=== PATIENT | male | born 1950 | race Caucasian/White ===

== ENCOUNTER 2017-08-15 16:30 | Outpatient (CLI) | payer MEDICARE ==
[2017-08-15 17:20] LABS: Hemoglobin 16.5 g/dL (14.0-18.0); Mean Corpuscular HGB CONC 34.6 g/dL (32.0-36.0); Mean Corpuscular Hemoglobin 32.5 pg (27.0-31.0); Mean Platelet Volume 8.7 fL (7.4-10.4); Platelet Count 165 thou/uL (130-400); RBC Distribution Width 12.1 % (11.5-14.5); Red Blood Cell (RBC) Count 5.07 mill/uL (4.70-6.10)
[2017-08-15 17:26] LABS: INR-International Normal Ratio 1.1; PTT 25.4 SEC (22.9-36.1); Prothrombin Time 14.2 SEC (12.0-14.7)
[2017-08-15 17:36] LABS: ALT (SGPT) 9 U/L (8-55); AST (SGOT) 10 U/L (5-34); Albumin 3.8 g/dL (3.4-4.8); Alkaline Phosphatase 74 U/L (40-150); Anion Gap 14 mmol/L (10-20); BUN (Urea Nitrogen) 20 mg/dL (8.4-25.7); Bilirubin, Total 0.4 mg/dL (0.2-1.2); Calc. Creatinine Clearance 0 mL/min (70-130); Carbon Dioxide 26 mmol/L (23-31); Chloride 104 mmol/L (98-107); Estimated GFR-MDRD 66; Globulin 2.6 g/dL (2.4-3.5); Glucose 109 mg/dL (80-115); Potassium 3.7 mmol/L (3.5-5.1); Protein, Total 6.4 g/dL (5.8-8.1); Sodium 140 mmol/L (136-145)
== END 2017-08-15 16:31 | disposition home or self-care (01) ==
LOC: LABBT 16:30
PROVIDERS: ATTEND Internal Medicine Cardiovascular Disease
DX: Z01.818 Encounter for other preprocedural examination (principal); R94.39 Abnormal result of other cardiovascular function study
CPT/HCPCS: 80053; 85027; 85610; 85730

== ENCOUNTER 2017-08-19 05:46 | Day surgery (SDC) | payer MEDICARE ==
[2017-08-15 16:38] VITALS: BMI 29.6
[2017-08-19] MEDS ORDERED: Heparin 10,000 UNITS/1 ML VIAL ONE (07:31)
[2017-08-19] MEDS ORDERED: Verapamil 5 MG/2 ML VIAL ONE ×2 (07:31→08:11)
[2017-08-19] MEDS ORDERED: Nitroglycerin 100MG/250ML BOT 250 ML ONE (07:31)
[2017-08-19 07:51] LABS: Cardiac Risk 4.8 (Less than 4.5)
[2017-08-19] MEDS ORDERED: Midazolam HCl 2 mg/2 ml Vial ONE (08:33)
[2017-08-19] MEDS ORDERED: Fentanyl 100 MCG/2 ML VIAL ONE (08:33)
--- NOTE | 2017-08-19 10:55 | CON ---
DATE OF CONSULTATION: 08/19/2017 HISTORY OF PRESENT ILLNESS: This is a 67-year-old gentleman with history of chronic atrial fibrillat ion, not on anticoagulation due to social situation. He was evaluated with a stress test showing an apical scar and marked ischemia without chest pain, but increased fatigue. Cardiac catheterization d one today showed a distal 70-80% left main stenosis. The LAD was occluded at its origin and filled f aintly from right to right and left to right collaterals. LV systolic function appeared overall well -preserved. PAST MEDICAL HISTORY: Otherwise significant for some mild aortic valve insufficiency and the echo re port is pending at this time. He also has a history of seizure disorder where he goes blank for a sh ort period of time, although this has not happened in a number of years. MEDICATIONS: Aspirin 1 daily, Epitol 200 mg b.i.d. with meals, Cartia XT 180 daily, digoxin 0.25 mg daily. ALLERGIES: No known allergies. PAST SURGICAL HISTORY: Negative. SOCIAL HISTORY: He lives alone. He runs a [employer] for which he works about 2-1/2 days a month. PHYSICAL EXAMINATION: GENERAL: He is an alert, cooperative gentleman in no distress. NECK: No carotid bruits. LUNGS: Clear to auscultation. CARDIAC: Irregular rhythm, no murmurs. ABDOMEN: Obese, soft, nontender. No aneurysm. EXTREMITIES: He has palpable femoral and posterior tibial pulses bilaterally with no peripheral eboni a. He has a compression device on his right radial artery. PLAN: The plan at this time is coronary bypass grafting x 3-4. The intention at this time is not to do anything to the right coronary artery. With his chronic atrial fibrillation a maze procedure is probably of no value, but a left atrial appendage ligation will be performed.
--- NOTE | 2017-08-19 11:52 | RAD ---
SINGLE VIEW OF THE CHEST: COMPARISON: 02/09/13. HISTORY: Preoperative radiograph prior to CABG. FINDINGS: Single view of the chest shows a normal sized cardiomediastinal silhouette. There is no evidence of c onsolidation, mass, or pleural effusion. The bones are unremarkable. IMPRESSION: No evidence of acute cardiopulmonary disease. POS: [facility]
[2017-08-19] MEDS ORDERED: Iopamidol 370 76% 100 ML VIAL ONE (16:10)
--- NOTE | 2017-08-20 07:16 | EKG ---
Test Reason : PREOP Blood Pressure : / mmHG Vent. Rate : 106 BPM Atrial Rate : 416 BPM P-R Int : 000 ms QRS Dur : 086 ms QT Int : 304 ms P-R-T Axes : 000 006 -62 degrees QTc Int : 403 ms Atrial fibrillation with rapid ventricular response Cannot rule out Inferior infarct , age undetermined Abnormal ECG When compared with ECG of 10-FEB-2013 07:45, Atrial fibrillation has replaced Sinus rhythm Nonspecific T wave abnormality now evident in Inferior leads Confirmed by CHANTAL RENDON, DR. Orozco ([id number]) on 08/20/2017 7:16:02 AM Referred By: YUNIEL Confirmed By:DR. Pam CORNEJO MD
== END 2017-08-19 11:39 | disposition home or self-care (01) ==
LOC: CCL 05:46
PROVIDERS: ATTEND Internal Medicine Cardiovascular Disease
DX: I48.2 Chronic atrial fibrillation (principal); I35.1 Nonrheumatic aortic (valve) insufficiency; G40.909 Epilepsy, unspecified, not intractable, without status epilepticus; I10 Essential (primary) hypertension; G31.84 Mild cognitive impairment of uncertain or unknown etiology; Q85.00 Neurofibromatosis, unspecified; Z79.82 Long term (current) use of aspirin; Z79.51 Long term (current) use of inhaled steroids; Z79.899 Other long term (current) drug therapy
CPT/HCPCS: 71045; 80061; 86850; 86900; 86901; 93005; 93458; C1769; 36415; 93010; 99152; J1644; J2250; J3010

== ENCOUNTER 2017-08-22 14:30 | Inpatient (IN) | payer MEDICARE ==
[2017-08-22 11:52] VITALS: BMI 30.1
[2017-08-23] MEDS ORDERED: Fentanyl 100 MCG/2 ML VIAL ONE (06:37)
[2017-08-23] MEDS ORDERED: Midazolam HCl 5 mg/5 ml Vial ONE (06:38)
[2017-08-23] MEDS ORDERED: Vecuronium 10 MG VIAL ONE ×2 (06:38→12:48)
[2017-08-23] MEDS ORDERED: Phenylephrine 10 MG/NS 250 ML 0 ML ONE (06:38)
[2017-08-23] MEDS ORDERED: Albumin 5% 500 ML ONE (06:46)
[2017-08-23] MEDS ORDERED: CEFAZOLIN/Water 2 GM/20 ML SYRINGE ONE (07:06)
[2017-08-23] MEDS ORDERED: Digoxin 0.5 MG/2 ML AMP ONE (08:16)
[2017-08-23 08:40] LABS: Bilirubin Negative (Negative); Blood, Urine Large (Negative); Clarity TURBID (Clear); Glucose, Urine (Dipstick) Negative (Negative); Leukocyte Large (Negative); Nitrite Positive (Negative); Protein, Urine (Dipstick) 100 mg/dL (Neg-Trace); Specific Gravity, Urine 1.021 (1.002-1.036)
[2017-08-23 08:45] LABS: Bacteria/HPF 4+ HPF (None Seen); Hyaline Casts/LPF 0-3 HYALINE CAST LPF (0-3 Hyaline); RBC/HPF GREATER THAN 50-TNTC HPF (0-3); Squamous Epithelial None Seen HPF (0-3)
[2017-08-23] MEDS ORDERED: Ondansetron HCl/PF 4 MG/2 ML Vial IVP PRN (11:45)
[2017-08-23] MEDS ORDERED: Amiodarone In Dextrose 200 ML IVPB SCH (11:45)
[2017-08-23] MEDS ORDERED: niCARdipine HCl 25 MG in Sodium Chloride 0.9% 250 ML 240 ML IVPB PRN (11:45)
[2017-08-23] MEDS ORDERED: Fentanyl 100 MCG/2 ML VIAL SLOW IVP PRN ×2 (11:45)
[2017-08-23] MEDS ORDERED: Mag-Al 1200 mg/1200 mg/30 ML UDCUP PO PRN (11:45)
[2017-08-23] MEDS ORDERED: DOPamine 400 MG/D5W 250 ML 250 ML IVPB PRN (11:45)
[2017-08-23] MEDS ORDERED: Promethazine HCl 25 MG/ML VIAL IM PRN (11:45)
[2017-08-23] MEDS ORDERED: Phenylephrine 10 MG/NS 250 ML 250 ML IVPB PRN (11:45)
[2017-08-23] MEDS ORDERED: HYDROcodone/Acetaminophen 5/325 mg Tablet PO PRN (11:45)
[2017-08-23] MEDS ORDERED: Norepinephrine 8 MG/0.9% NS 250 ML IVPB PRN (11:45)
[2017-08-23] MEDS ORDERED: Bisacodyl 10 MG SUPP PR PRN (11:45)
[2017-08-23] MEDS ORDERED: Potassium Chloride 20 MEQ/100 ML PREMIX BAG IVPB PRN (11:45)
[2017-08-23] MEDS ORDERED: Guaifenesin DM 100-10/5 ML UDCUP PO PRN (11:45)
[2017-08-23] MEDS ORDERED: Bisacodyl 5 MG TAB PO PRN (11:45)
[2017-08-23] MEDS ORDERED: Hetastarch 6% 500 ML 500 ML IVPB PRN (11:45)
[2017-08-23] MEDS ORDERED: Morphine 4 MG/ML Carpuject SLOW IVP PRN (11:45)
[2017-08-23] MEDS ORDERED: Nitroglycerin 50 MG/250 ML BOT 250 ML IVPB PRN (11:45)
[2017-08-23] MEDS ORDERED: Post-Op Insulin Drip Protocol IVPB ONE (11:45)
[2017-08-23] MEDS ORDERED: Acetaminophen 325 MG TAB PO PRN (11:45)
[2017-08-23] MEDS ORDERED: hydrALAZINE 20 MG/ML VIAL SLOW IVP PRN (11:45)
[2017-08-23] MEDS ORDERED: Dextrose 50% Abboject 50 ML SYRINGE SLOW IVP PRN (12:05)
[2017-08-23] MEDS ORDERED: Dextrose 5% in Water 1,000 ML IV PRN (12:05)
[2017-08-23] MEDS ORDERED: Insulin Regular 300 UNITS/3 ML VIAL SC PRN (12:05)
[2017-08-23] MEDS: Ketorolac Tromethamine 30 MG/ML VIAL IVP SCH ×3 (12:12→23:38)
[2017-08-23] MEDS ORDERED: Magnesium 2 GM/NS 0.9% 100 ML 2 GM in Premix Bag 1 BAG IVPB SCH (12:15)
--- NOTE | 2017-08-23 12:15 | OP ---
PREOPERATIVE DIAGNOSES: Coronary artery disease, chronic atrial fibrillation. PROCEDURES PERFORMED: Coronary bypass graft x3. Good quality left internal mammary artery to a 1.5 mm left anterior descending, saphenous vein good quality, the large size 2-2.5 mm diagonal and 2-2.5 mm ramus. The obtuse marginal was felt to be marginal for grafting and was not grafted. Left atrial appendage was oversewn. SURGEON: Bryce Avila M.D. TANK HOUSE OPERATOR: Dr. Bedolla. TRANSFUSION: None. PROCEDURE IN DETAIL: After adequate anesthesia had been obtained, the patient was prepped and draped . A midline sternotomy was performed and simultaneously Dr. Bedolla did an endovascular vein harvest o f the left greater saphenous vein. After completing sternotomy, the left internal mammary artery was harvested entering the pleura. Heparinization was carried out, the mammary divided distally, passed posterior to the thymus gland and treated with intraluminal papaverine. Aorta and right atrium were cannulated and cardiopulmonary bypass was instituted. Vessels were inspected for grafting. The aor ta was cross-clamped and 900 mL of cardioplegic solution was given through the aortic root; however, the patient had more significant AI than appreciated and aorta did not firm up. For this reason, a r etrograde coronary sinus catheter was placed. 300 mL was given retrograde and the patient developed standstill. Following this, atrial appendage was oversewn with a double layer of 4-0 Prolene and the re were no signs of thrombus either with ADAMARIS or visually. Following completion of this, venous to co ronary anastomoses were completed and then mammary to LAD. Cross-clamp was removed and the partial o ccluding clamp placed, and 2 proximal anastomoses performed on the aortic root and marked with rings. The patient was weaned from cardiopulmonary bypass, cannulas removed, and a 4-0 Prolene suture plac ed to secure the aortic cannulation site. Mediastinal and left pleural drains were placed, following which the sternum was reapproximated with #7 interrupted wire using vancomycin paste on the sternal edges, platelet-enriched blood, and platelet-poor plasma. Subcutaneous tissue and skin were closed i n layers.
[2017-08-23] MEDS: Sodium Chloride 0.9% 1,000 ML IV SCH (12:17)
[2017-08-23 12:18] LABS: Actual Bicarbonate (HCO3a) 21.8 mEq/L (22-26); CO2 Tension 37.6 mmHg (35.0-45.0); O2 Tension (PaO2) 88.7 mmHg (80.0-100.0); pH, Arterial 7.38 (7.35-7.45)
[2017-08-23 12:19] LABS: Base Excess (BEa) -2.9 mEq/L (0 (+/-) 2.5); Hemoglobin (Hb) 13.6 g/dL (14.0-18.0); Puncture Site ALINE
[2017-08-23 12:19] LABS: Hemoglobin 13.8 g/dL (14.0-18.0); Mean Corpuscular HGB CONC 32.8 g/dL (32.0-36.0); Mean Corpuscular Hemoglobin 30.7 pg (27.0-31.0); Mean Corpuscular Volume 93.6 fl (80.0-94.0); Mean Platelet Volume 8.5 fL (7.4-10.4); Platelet Count 193 thou/uL (130-400); RBC Distribution Width 11.8 % (11.5-14.5); White Blood Cell (WBC) Count 25.2 thou/uL (4.8-10.8)
[2017-08-23 12:20] LABS: INR-International Normal Ratio 1.3; PTT 31.3 SEC (22.9-36.1); Prothrombin Time 16.7 SEC (12.0-14.7)
[2017-08-23 12:31] LABS: Band 31 % (5-11); Lymphocytes 1 % (21-51); MDiff Complete? YES; Monocytes 9 % (0-10); Myelocyte 2 % (0-0); Neutrophil 53 % (42-75); RBC Morphology Normal; Reactive Lymphocytes 4 % (0-10)
[2017-08-23 12:33] LABS: Anion Gap 10 mmol/L (10-20); BUN (Urea Nitrogen) 23 mg/dL (8.4-25.7); Calc. Creatinine Clearance 110 mL/min (70-130); Calcium 7.5 mg/dL (7.8-10.44); Carbon Dioxide 22 mmol/L (23-31); Chloride 108 mmol/L (98-107); Estimated GFR-MDRD 90; Glucose 147 mg/dL (80-115); Potassium 5.3 mmol/L (3.5-5.1); Sodium 135 mmol/L (136-145)
[2017-08-23] MEDS ORDERED: Heparin 5,000 UNITS/ML VIAL ONE (12:48)
[2017-08-23] MEDS ORDERED: Lidocaine 1% PF 5 ML VIAL ONE (12:48)
[2017-08-23] MEDS ORDERED: Magnesium 5 GM/10 ML VIAL ONE (12:48)
[2017-08-23] MEDS ORDERED: Lidocaine 2% PF 100 mg/5 ml Syringe ONE (12:48)
[2017-08-23] MEDS ORDERED: Cardioplegic Soln 1,000 ML BAG ONE (12:48)
[2017-08-23] MEDS ORDERED: Protamine Sulfate 250 MG/25 ML VIAL ONE (12:48)
[2017-08-23] MEDS ORDERED: Potassium Chloride 60 MEQ/30 ML VIAL ONE (12:48)
[2017-08-23] MEDS ORDERED: Sodium Bicarb 50 MEQ/50 ML VIAL ONE (12:48)
[2017-08-23] MEDS ORDERED: PHENYLEPHRINE-NS 100 MCG/ML 10 ML SYRINGE ONE (12:48)
[2017-08-23] MEDS ORDERED: Heparin 30,000 units/30 ml VIAL ONE (12:48)
[2017-08-23] MEDS ORDERED: Thrombin 5000 UNITS/5 ML VIAL ONE (12:48)
[2017-08-23] MEDS ORDERED: Aminocaproic Acid 5 GM/20 ML VIAL ONE (12:48)
[2017-08-23] MEDS ORDERED: Esmolol 100 MG/10 ML VIAL ONE (12:48)
[2017-08-23] MEDS ORDERED: Papaverine 60 MG/2 ML VIAL ONE (12:48)
[2017-08-23] MEDS ORDERED: Calcium Chloride 1 GM/10 ML Abboject SYRINGE ONE (12:48)
[2017-08-23] MEDS ORDERED: Propofol 200 MG/20 ML VIAL ONE (12:48)
--- NOTE | 2017-08-23 13:04 | RAD ---
ONE VIEW CHEST: Comparison: 02-09-13, 08-19-17 FINDINGS: Portable supine chest radiograph demonstrates an endotracheal tube at the level of the clavicles. The re is a right sided central venous catheter terminating over the expected region of the right atrium. Sternotomy wires are noted. There is a new left sided venous catheter and left sided chest tube. The re are pleural and parenchymal changes in the left lung base. Heart is enlarged. No pneumothorax. IMPRESSION: Post-operative changes as above. POS: [facility]
[2017-08-23] MEDS: CEFAZOLIN/Water 2 GM/20 ML SYRINGE SLOW IVP SCH ×2 (14:26→20:56)
[2017-08-23 15:38] LABS: pH, Arterial 7.41 (7.35-7.45)
[2017-08-23 15:40] LABS: Actual Bicarbonate (HCO3a) 21.1 mEq/L (22-26); Base Excess (BEa) -2.6 mEq/L (0 (+/-) 2.5); CO2 Tension 33.9 mmHg (35.0-45.0); Hemoglobin (Hb) 14.1 g/dL (14.0-18.0); O2 Tension (PaO2) 92.9 mmHg (80.0-100.0)
[2017-08-23 15:41] LABS: ALV-art Gradient 85.755 (0-20); Puncture Site ALINE
--- NOTE | 2017-08-23 16:43 | CON ---
DATE OF CONSULTATION: 08/23/2017 SERVICE: Pulmonary Medicine. REASON FOR CONSULTATION: ICU patient. HISTORY OF PRESENT ILLNESS: The patient is a very pleasant 67-year-old white male with past medical history significant for coronary artery disease. This was identified on a cardiac catheterization by Cardiology. He was in his usual state of health when he presented from the outpatient setting for a coronary bypass graft. The postop period was uncomplicated to date. He currently denies any shortness of breath, fever or chills. He is currently on mechanical ventilation and a hard time getting words out, obviously. That being said, he has no complaints of ongoing chest discomfort, belly pain, nausea, vomiting, or leg pain. PAST MEDICAL HISTORY: 1. Coronary artery disease, status post coronary artery bypass graft. 2. Atrial fibrillation. 3. Hypertension. 4. History of seizure disorder. 5. Mild cognitive impairment. PAST SURGICAL HISTORY: Coronary artery bypass graft. ALLERGIES: No known drug allergies. MEDICATIONS: List of inpatient medications were reviewed. There are no specific updates made at this time. FAMILY HISTORY: Noncontributory. SOCIAL HISTORY: Negative for tobacco, alcohol or illicit drug use. He previously worked as a rancher. He has no exposures to chemicals, dust asbestos or tuberculosis, otherwise. REVIEW OF SYSTEMS: This cannot be obtained as the patient is currently intubated and under the influence of a little bit of sedation. PHYSICAL EXAMINATION: VITAL SIGNS: Afebrile, pulse 80, blood pressure 102/61, respirations 24, saturation 99% on 30% FiO2 and PEEP of 5. GENERAL: Patient is awake and alert, in no apparent distress. LUNGS: Decent air entry. There is no prolonged expiratory phase, wheezing, rhonchi, or crackles present. Waveforms on the ventilator looks fantastic. HEART: Normal rate. Irregular. ABDOMEN: Soft, nontender and nondistended. Bowel sounds are positive. MUSCULOSKELETAL: No cyanosis or clubbing. There is no pitting in the bilateral lower extremities. NEUROLOGIC: Grossly nonfocal. LABORATORY DATA: WBC 25.2, hemoglobin 13.8 and platelets 193,000. INR 1.3. PH 7.41, pCO2 of 34, pO2 of 92 on 31% FiO2 at the time. Creatinine 0.85. Basic metabolic profile is otherwise unremarkable except for potassium of 5.3. Glucose 147 and calcium 7.5. IMAGING DATA: Chest x-ray demonstrates postop sternotomy changes. I see no evidence of an acute consolidating lesion. Endotracheal tube is roughly 4-5 cm above the luis. The right IJ is in good position and terminates in the vicinity of the cavoatrial junction. There is a thoracostomy drain on the left with no obvious overt effusion. ASSESSMENT: 1. Coronary artery disease, status post coronary artery bypass graft x3 vessels. 2. Atrial fibrillation, status post left atrial appendage oversew. 3. Acute hypoxic respiratory failure, in the immediate postoperative period. 4. History of seizure disorder, currently well controlled. PLAN: We will wean oxygen as tolerated. He currently looks pretty good on the ventilator. I do think that he would tolerate extubation just fine. That being said, he is the post-CABG protocol and this will be followed. I will wean away the oxygen as tolerated. We will resume his home antiepileptic drugs as soon as he tolerates p.o. Pulmonary Critical Care will continue to follow. CRITICAL CARE TIME: 30 minutes. EBONI
[2017-08-23 17:06] LABS: Hemoglobin 14.4 g/dL (14.0-18.0)
[2017-08-23 17:35] LABS: Potassium 4.5 mmol/L (3.5-5.1)
[2017-08-23] MEDS: Amiodarone HCl 450 MG, Admixture Fee 1 EACH in Dextrose 5% in Water 250 ML IVPB SCH ×3 (18:05)
--- NOTE | 2017-08-23 19:03 | CON ---
DATE OF CONSULTATION: 08/23/2017 REASON FOR CONSULTATION: Status post CABG. PRIMARY SULFIDE HEAD OPERATOR: Markie Barclay M.D. HISTORY OF PRESENT ILLNESS: Mr. Abbais is a very pleasant 67-year-old white gentleman, who comes to the hospital for planned coronary artery bypass grafting. He is my patient. He was seen in the off ice for atrial fibrillation and shortness of breath with exertion. He was found to have an abnormal stress and taken to the catheterization lab for further evaluation and was found to have multivessel disease. He had a distal left main and proximal LAD disease. He underwent coronary artery bypass gr afting x3 with WALKER to the LAD, saphenous vein graft to diagonal and a jump to ramus. There was an O M that was felt to be marginal for non-grafted. He also had a left atrial appendage oversewn. He is doing well. He is sore but is awake. He is off all inotropic support. He developed a small run of atrial fibrillation, but he converted on his own. Otherwise, progressing as expected. PAST MEDICAL HISTORY: 1. Coronary artery disease, status post CABG as above. 2. Paroxysmal atrial fibrillation. 3. Hypertension. 4. Seizure disorder. 5. Mild cognitive impairment. PAST SURGICAL HISTORY: CABG x3 as above. ALLERGIES: No known drug allergies. OUTPATIENT MEDICATIONS: Include, 1. Diltiazem. 2. Digoxin. 3. Carbamazepine. 4. Flonase. 5. Aspirin 325 a day. FAMILY HISTORY: Noncontributory. SOCIAL HISTORY: No alcohol, tobacco or drugs. REVIEW OF SYSTEMS: A 10-point review of systems was done and is all negative unless stated in the hi story of present illness. He does complain about just soreness around his chest and soreness around his leg where the vein was taken out. Otherwise, he just feels worn out. PHYSICAL EXAMINATION: VITAL SIGNS: Temperature 97.1, pulse 86, respiratory rate 20, satting 97% on 2 liters, blood pressur e 117/57. HEENT: Normocephalic, atraumatic. NECK: Supple. LUNGS: Clear. CARDIOVASCULAR: There is a 3 component rub, but no murmurs. S1 and S2. ABDOMEN: Soft. Positive bowel sounds. EXTREMITIES: 1+ edema in bilateral. SKIN: Warm and dry. LABORATORY WORK: Reviewed. White count postoperatively of 25; hemoglobin of 13, up to 14 now; hemat ocrit 42; platelet count of 193. Coags were reviewed. ABG was reviewed. Chemistries were reviewed. Postop sodium was 135, potassium was 5.3, chloride of 108, carbon dioxide 22, anion gap of 10, BUN of 23, creatinine 0.85. UA showed positive nitrites, large leukocyte esterase, 4+ bacteria. Chest x-ray was reviewed. ASSESSMENT AND PLAN: 1. Multivessel coronary artery disease, status post coronary artery bypass grafting x3 as above. 2. Atrial fibrillation. Left atrial appendage was oversewn today. 3. Seizure disorder. 4. Possible urinary tract infection. PLAN: 1. Continue supportive care. 2. Continue regular postoperative care. 3. I agree with an amiodarone drip as he had a small amount of atrial fibrillation, most likely he w ill continue to have these postoperatively and amiodarone drip would reduce the possibility of him go ing into them. 4. Aspirin and statin for life. 5. Beta ty and RUFUS inhibitor once blood pressure allows. 6. Consider antibiotic therapy for possible urinary tract infection as his UA seems to be an issue. Thank you for letting us to participate in the care of your patient. We will follow.
[2017-08-23] MEDS: carBAMazepine 200 MG TAB PO SCH (20:42)
[2017-08-23] MEDS ORDERED: Famotidine/PF 20 mg/2ml Vial SLOW IVP SCH (21:00)
[2017-08-23] MEDS ORDERED: Digoxin 0.25 MG TAB PO SCH (21:00)
[2017-08-23] MEDS: HYDROcodone/Acetaminophen 5/325 mg Tablet PO PRN ×2 (21:05→23:37)
--- NOTE | 2017-08-23 23:45 | EKG ---
Test Reason : POST CABG Blood Pressure : / mmHG Vent. Rate : 078 BPM Atrial Rate : 078 BPM P-R Int : 150 ms QRS Dur : 076 ms QT Int : 356 ms P-R-T Axes : 064 019 043 degrees QTc Int : 405 ms Normal sinus rhythm Low voltage QRS Borderline ECG When compared with ECG of 19-AUG-2017 06:52, Sinus rhythm has replaced Atrial fibrillation Non-specific change in ST segment in Lateral leads Confirmed by Leatha AMAYA ([id number]) on 08/23/2017 11:45:37 PM Referred By: DARCIE Confirmed By:Leatha AMAYA
[2017-08-24] MEDS: Amiodarone HCl 450 MG, Admixture Fee 1 EACH in Dextrose 5% in Water 250 ML IVPB SCH ×6 (00:36→22:12)
[2017-08-24 04:21] LABS: #Eosinphils 0.1 thou/uL (0.0-0.7); #Lymphocytes 1.1 thou/uL (1.20-3.40); #Monocytes 1.7 thou/uL (0.11-0.59); #Neutrophils 10.8 thou/uL (1.40-6.50); %Basophils 0.1 % (0.0-1.0); %Eosinophils 0.4 % (0.0-10.0); %Lymphocytes 7.9 % (21.0-51.0); %Monocytes 12.7 % (0.0-10.0); %Neutrophils 78.9 % (42.0-75.0); Hemoglobin 13.3 g/dL (14.0-18.0); Mean Corpuscular HGB CONC 34.2 g/dL (32.0-36.0); Mean Corpuscular Volume 93.5 fl (80.0-94.0); Mean Platelet Volume 8.3 fL (7.4-10.4); Platelet Count 164 thou/uL (130-400); RBC Distribution Width 11.8 % (11.5-14.5); Red Blood Cell (RBC) Count 4.17 mill/uL (4.70-6.10); White Blood Cell (WBC) Count 13.7 thou/uL (4.8-10.8)
[2017-08-24 04:25] LABS: Anion Gap 11 mmol/L (10-20); BUN (Urea Nitrogen) 26 mg/dL (8.4-25.7); Calc. Creatinine Clearance 118 mL/min (70-130); Calcium 7.1 mg/dL (7.8-10.44); Carbon Dioxide 22 mmol/L (23-31); Chloride 107 mmol/L (98-107); Estimated GFR-MDRD Greater than 90; Glucose 104 mg/dL (80-115); Potassium 4.2 mmol/L (3.5-5.1); Sodium 136 mmol/L (136-145)
[2017-08-24] MEDS: Ketorolac Tromethamine 30 MG/ML VIAL IVP SCH (05:04)
[2017-08-24] MEDS: HYDROcodone/Acetaminophen 5/325 mg Tablet PO PRN ×3 (05:05→22:10)
[2017-08-24] MEDS: CEFAZOLIN/Water 2 GM/20 ML SYRINGE SLOW IVP SCH (05:08)
--- NOTE | 2017-08-24 06:22 | PDOC.CTH ---
Cardiology Progress Note - Subjective He is doing well. He went back to afib but is rate controlled. - Objective Vital Signs Temp Pulse Resp Pulse Ox 08/24/17 02:42 98 08/23/17 20:42 86 08/23/17 20:00 98.7 F 86 25 H 96 Weight 197 lb 5.019 oz 08/22/17 08/23/17 08/24/17 06:59 06:59 06:59 Intake Total 1292.1 Output Total 980 Balance 312.1 - Physical Examination General/Neuro: alert & oriented x3, NAD Neck: no JVD present Lungs: unlabored respirations Heart: other: (irreg) Abdomen: NT/ND Extremities: + edema B (1+) - Telemetry Telemetry Rhythm: NSR - Labs Result Diagrams: 08/24/17 03:45 08/24/17 03:45 - Assessment/Plan 1. CAD s/p CABG. 2. Chronic afib 3. S/P EVELINE ligation 4. UTI PLAN: - Will continue Cipro for 5 days total. - Aspirin and statin for life. - Will start very low dose BB. - ACEI once BP allows. - Start PT once chest tubes out.
[2017-08-24] MEDS ORDERED: Ondansetron HCl/PF 4 MG/2 ML Vial IVP PRN (07:47)
[2017-08-24] MEDS ORDERED: Milk Of Magnesia 30 ML UDCUP PO PRN (07:47)
[2017-08-24] MEDS ORDERED: Bisacodyl 10 MG SUPP PR PRN (07:47)
[2017-08-24] MEDS ORDERED: Fentanyl 100 MCG/2 ML VIAL SLOW IVP PRN (07:47)
[2017-08-24] MEDS ORDERED: Mag-Al 1200 mg/1200 mg/30 ML UDCUP PO PRN (07:47)
[2017-08-24] MEDS ORDERED: Bisacodyl 5 MG TAB PO PRN (07:47)
[2017-08-24] MEDS ORDERED: Nitroglycerin 0.4 MG TAB 1 EACH SL PRN (07:47)
[2017-08-24] MEDS ORDERED: Guaifenesin DM 100-10/5 ML UDCUP PO PRN (07:47)
[2017-08-24] MEDS ORDERED: Acetaminophen 325 MG TAB PO PRN (07:47)
[2017-08-24] MEDS ORDERED: Mineral Oil ENEMA PR PRN (07:47)
[2017-08-24] MEDS: Sodium Chloride 0.9% 1,000 ML IV SCH (08:12)
[2017-08-24] MEDS ORDERED: Magnesium 2 GM/NS 0.9% 100 ML 2 GM in Premix Bag 1 BAG IVPB SCH (09:00)
[2017-08-24] MEDS ORDERED: Aspirin 325 MG TAB PO SCH (09:00)
--- NOTE | 2017-08-24 09:24 | RAD ---
CHEST ONE VIEW: History: Post open heart surgery. Comparison: Prior day. FINDINGS: Central venous catheter tip cavoatrial junction, similar. Patient has been extubated. No enteric tube is seen. Mediastinal and thoracotomy drains are present. There is dependent atelectasis present and small left effusion. No pneumothorax. IMPRESSION: Interval extubation without complication. POS: [facility]
[2017-08-24] MEDS: Digoxin 0.25 MG TAB PO SCH (09:37)
[2017-08-24] MEDS: Tamsulosin HCl 0.4 MG CAP PO SCH (09:38)
[2017-08-24] MEDS: Aspirin 325 mg Enteric Coated Tablet PO SCH (09:38)
[2017-08-24] MEDS: Famotidine 20 MG TAB PO SCH ×2 (09:38→22:13)
[2017-08-24] MEDS: carBAMazepine 200 MG TAB PO SCH ×2 (09:38→22:18)
[2017-08-24] MEDS: Finasteride 5 MG TAB PO SCH (09:38)
[2017-08-24] MEDS: Carvedilol 3.125 MG TAB PO SCH ×2 (09:38→17:35)
--- NOTE | 2017-08-24 13:50 | PRG ---
DATE OF SERVICE: 08/24/2017 SERVICE: Pulmonary Medicine INTERVAL HISTORY: The patient is doing outstanding from a respiratory standpoint. He is breathing v pamela comfortably this morning. His only complaint is that he has got a significant amount of weakness . He fought the weakness to get into a chair today, but otherwise, needed a little bit of motivation to do so. There were no overnight events. PHYSICAL EXAMINATION: VITAL SIGNS: Afebrile, pulse 89, blood pressure 105/75, respirations 26, saturation 96% on 2 liters nasal cannula. GENERAL: The patient is awake, alert, in no apparent distress. LUNGS: Decent air entry. Dependent crackles are minimal. No prolonged expiratory phase or wheezing is appreciated. HEART: Normal rate, regular. ABDOMEN: Soft, nontender, nondistended. Bowel sounds are positive. MUSCULOSKELETAL: No cyanosis or clubbing. No pitting in the bilateral lower extremities. NEUROLOGIC: Grossly nonfocal. LABORATORY DATA: WBC 13.7, hemoglobin 13.3, platelets 164,000. INR 1.3. Basic metabolic profile is otherwise unremarkable. Calcium 7.1. Urinalysis is positive for greater than 50 white blood cells and red blood cells. Urine culture is growing gram negative rods at this point. IMAGING: Chest x-ray demonstrates interval extubation. Right IJ is in good position. There is a le ft-sided thoracostomy drain with possible left-sided pleural or parenchymal opacification, with volum e loss. ASSESSMENT: 1. Coronary artery disease, status post coronary artery bypass graft x3 vessels. 2. Atrial fibrillation, status post a left atrial appendage oversew. 3. Acute hypoxic respiratory failure, improving. 4. History of seizure disorder. PLAN: The patient is doing fine from a respiratory standpoint. He can be transitioned out of the IC U today. When he goes to the floor, he will have no further requirements for inpatient Critical Care opinion. As such, I will sign off. If he remains in this location I will continue to follow.
[2017-08-24] MEDS: Atorvastatin Calcium 20 MG TAB PO SCH (22:11)
[2017-08-25] MEDS: cefTRIAXone\\ROCEPHIN 2 GM in Sodium Chloride 0.9% 100 ML IVPB SCH (06:47)
[2017-08-25] MEDS: Carvedilol 3.125 MG TAB PO SCH ×2 (08:37→16:50)
[2017-08-25] MEDS: carBAMazepine 200 MG TAB PO SCH ×2 (08:37→16:50)
[2017-08-25] MEDS: Aspirin 325 mg Enteric Coated Tablet PO SCH (08:37)
[2017-08-25] MEDS: Digoxin 0.25 MG TAB PO SCH (08:37)
[2017-08-25] MEDS: Famotidine 20 MG TAB PO SCH ×2 (08:38→21:32)
[2017-08-25] MEDS: Finasteride 5 MG TAB PO SCH (08:38)
[2017-08-25] MEDS: Tamsulosin HCl 0.4 MG CAP PO SCH (08:38)
[2017-08-25] MEDS: Amiodarone HCl 450 MG, Admixture Fee 1 EACH in Dextrose 5% in Water 250 ML IVPB SCH ×3 (12:23)
--- NOTE | 2017-08-25 17:16 | PDOC.CTH ---
Cardiology Progress Note - Subjective He is doing much better today. Chest tubes are out. He has been walking around with cardiac rehab and feels fine doing so. His HR has been higher than normal averaging 1000 to 120. He still has not had a BM but does not feel like having one. - Objective Vital Signs Temp Pulse Pulse Pulse Resp BP BP 08/25/17 15:42 98.1 F 117 H 16 08/25/17 15:00 131 H 119 H 153/75 H 147/69 H 08/25/17 13:05 99 100 115/68 121/73 08/25/17 11:47 97.8 F 113 H 17 08/25/17 10:02 112 H 117 H 129/79 112/66 08/25/17 08:51 131 H 120 H 113/71 120/61 08/25/17 08:37 120 H 08/25/17 08:33 98.3 F 120 H 22 H BP BP Pulse Ox Pulse Ox Pulse Ox 08/25/17 15:42 133/79 98 08/25/17 15:00 100 98 08/25/17 13:05 08/25/17 11:47 114/74 98 08/25/17 10:02 96 96 08/25/17 08:51 94 L 95 08/25/17 08:37 08/25/17 08:33 128/95 H 95 Weight 206 lb 08/24/17 08/25/17 08/26/17 06:59 06:59 06:59 Intake Total 1292.1 2001.95 Output Total 980 1755 Balance 312.1 246.95 - Physical Examination General/Neuro: alert & oriented x3, NAD Neck: no JVD present Lungs: unlabored respirations Heart: RRR Abdomen: NT/ND Extremities: + edema B (Trace) - Telemetry Telemetry Rhythm: Afib HR 100-120 - Labs Result Diagrams: 08/24/17 03:45 08/24/17 03:45 - Assessment/Plan 1. CAD s/p CABG. 2. Chronic afib 3. S/P EVELINE ligation 4. E-coli UTI PLAN: - Ecoli sensitive to cipro, continue for 4 more days. - Aspirin and statin for life. - Will increase BB for better rate control. - Continue digoxin. - He is in RVR as he was on much more aggressive rate control as outpatient but his BP is borderline at the time to restart CCB. - ACEI after CCB if BP allows. - Increase PT as tolerated.
[2017-08-25] MEDS ORDERED: Carvedilol 3.125 MG TAB PO SCH (17:17)
[2017-08-25] MEDS: Atorvastatin Calcium 20 MG TAB PO SCH (21:32)
[2017-08-25] MEDS: HYDROcodone/Acetaminophen 5/325 mg Tablet PO PRN (21:32)
[2017-08-26] MEDS: Amiodarone HCl 450 MG, Admixture Fee 1 EACH in Dextrose 5% in Water 250 ML IVPB SCH ×3 (03:49)
[2017-08-26] MEDS ORDERED: Sodium Chloride 0.9% 10 ML ONE (05:35)
[2017-08-26] MEDS: cefTRIAXone\\ROCEPHIN 2 GM in Sodium Chloride 0.9% 100 ML IVPB SCH (06:26)
[2017-08-26] MEDS: Famotidine 20 MG TAB PO SCH ×2 (08:19→20:44)
[2017-08-26] MEDS: Digoxin 0.25 MG TAB PO SCH (08:19)
[2017-08-26] MEDS: Aspirin 325 mg Enteric Coated Tablet PO SCH (08:19)
[2017-08-26] MEDS: carBAMazepine 200 MG TAB PO SCH ×2 (08:19→18:11)
[2017-08-26] MEDS: Finasteride 5 MG TAB PO SCH (08:20)
[2017-08-26] MEDS: Tamsulosin HCl 0.4 MG CAP PO SCH (08:20)
[2017-08-26] MEDS ORDERED: Carvedilol 3.125 MG TAB PO SCH (13:55)
--- NOTE | 2017-08-26 13:55 | PDOC.CTH ---
Cardiology Progress Note - Subjective He is doing better. He is working well with PT. - Objective Vital Signs Temp Pulse Pulse Pulse Resp BP BP 08/26/17 11:29 100 100 116/67 125/72 08/26/17 11:26 98.1 F 68 18 08/26/17 09:02 118 H 120 H 121/78 121/62 08/26/17 08:19 71 08/26/17 08:16 97.3 F L 71 16 08/26/17 03:46 99.8 F H 107 H 20 BP BP Pulse Ox Pulse Ox Pulse Ox 08/26/17 11:29 100 97 08/26/17 11:26 125/69 96 08/26/17 09:02 95 98 08/26/17 08:19 08/26/17 08:16 137/75 95 08/26/17 03:46 117/68 94 L Weight 195 lb 9.6 oz 08/25/17 08/26/17 08/27/17 06:59 06:59 06:59 Intake Total 2001.95 1671.6 Output Total 1755 1175 Balance 246.95 496.6 - Physical Examination General/Neuro: alert & oriented x3, NAD Neck: no JVD present Lungs: unlabored respirations Heart: other: (Irreg) Abdomen: NT/ND Extremities: + edema B (1+) - Telemetry Telemetry Rhythm: Afib HR 80-110 - Labs Result Diagrams: 08/24/17 03:45 08/24/17 03:45 - Assessment/Plan 1. CAD s/p CABG. 2. Chronic afib 3. S/P EVELINE ligation 4. E-coli UTI PLAN: - Ecoli sensitive to cipro, continue for 3 more days. - Aspirin and statin for life. - Will increase Coreg to 12.5 mg BID for better rate control. - Continue digoxin. - He is in RVR as he was on much more aggressive rate control as outpatient but his BP is borderline at this time to restart CCB. - BP borderline low to start ACEI or CCB - Increase PT as tolerated. - Will switch amio to PO for rate control at 200 mg BID. Once his BP starts to come up in the next few weeks will plan on restarting home dose of diltiazem and transitioning out of amiodarone. - Med change son discharge, discontinue labetalol and try to mas out Coreg. Continue Digoxin for rate control. Diltiazem as above.
[2017-08-26] MEDS ORDERED: Carvedilol 6.25 MG TAB PO SCH (14:00)
[2017-08-26] MEDS: Carvedilol 6.25 MG TAB PO SCH (18:11)
[2017-08-26] MEDS: Amiodarone 200 MG TAB PO SCH (20:44)
[2017-08-26] MEDS: Atorvastatin Calcium 20 MG TAB PO SCH (20:44)
[2017-08-26] MEDS: HYDROcodone/Acetaminophen 5/325 mg Tablet PO PRN (21:46)
[2017-08-27] MEDS ORDERED: Sodium Chloride 0.9% 10 ML ONE (05:32)
[2017-08-27] MEDS: cefTRIAXone\\ROCEPHIN 2 GM in Sodium Chloride 0.9% 100 ML IVPB SCH (06:04)
[2017-08-27] MEDS: Famotidine 20 MG TAB PO SCH ×2 (08:23→20:46)
[2017-08-27] MEDS: Finasteride 5 MG TAB PO SCH (08:23)
[2017-08-27] MEDS: Aspirin 325 mg Enteric Coated Tablet PO SCH (08:23)
[2017-08-27] MEDS: Digoxin 0.25 MG TAB PO SCH (08:23)
[2017-08-27] MEDS: carBAMazepine 200 MG TAB PO SCH ×2 (08:23→17:57)
[2017-08-27] MEDS: Tamsulosin HCl 0.4 MG CAP PO SCH (08:23)
[2017-08-27] MEDS: Amiodarone 200 MG TAB PO SCH ×2 (08:23→20:46)
[2017-08-27] MEDS: Carvedilol 6.25 MG TAB PO SCH (08:23)
[2017-08-27] MEDS: HYDROcodone/Acetaminophen 5/325 mg Tablet PO PRN (10:16)
--- NOTE | 2017-08-27 13:18 | PDOC.CTH ---
<Estephanie Dinh - Last Filed: 08/27/17 13:19> Cardiology Progress Note - Subjective The pt seen and examined. No overnight events. No cardiac complaints. He complains of intermittent pain at MSI with movement. Possible tx to rehab - Objective Vital Signs Temp Pulse Pulse Pulse Resp BP BP 08/27/17 12:14 102 H 112 H 102/58 L 08/27/17 08:23 98 130/77 08/27/17 08:00 98.3 F 98 20 08/27/17 04:00 98.2 F 113 H 20 BP BP BP Pulse Ox Pulse Ox Pulse Ox 08/27/17 12:14 96/60 97 93 L 08/27/17 08:23 08/27/17 08:00 130/77 92 L 08/27/17 04:00 123/69 92 L Weight 193 lb 3.2 oz 08/26/17 08/27/17 08/28/17 06:59 06:59 06:59 Intake Total 1671.6 2030 Output Total 1175 6250 Balance 496.6 -4220 - Physical Examination General/Neuro: alert & oriented x3 Neck: no JVD present Lungs: CTA (diminished at bases) Heart: other: (irregular) Abdomen: soft Extremities: other: (No edema) - Telemetry Telemetry Rhythm: AFib HR 80-90s - Labs Result Diagrams: 08/24/17 03:45 08/24/17 03:45 - Assessment/Plan 1. CAD s/p CABG x3 to WALKER-LAD, Saph-diag, Saph-Ramus on 08/23/17 - stable; [employer] and clear; 2. Chronic afib - remains in Afib with well controlled HR; on Amiodarone 200mg BID, Dig, Coreg 25gm BID, and ASA 325mg daily; 3. S/P EVELINE ligation 4. HTN - stable with current medication 5. Hyperlipidemia - on statin 6. E-coli UTI - on Cipro PO; managed by PCP MAR reviewed * Discharge med: ASA, Coreg, Amiodarone, Dig * From Cardiac standpoint, the pt is stable to d/c; The pt will f/u with Dr Barclay within 2-4wks * Cont. Amiodarone 200 mg BID. Once his BP starts to come up in the next few weeks will plan on restarting home dose of diltiazem and transitioning out of amiodarone by Dr Barclay. Review of Systems - Review of Systems Constitutional: reports: no symptoms reported EENTM: reports: no symptoms reported Respiratory: reports: no symptoms reported Cardiac (ROS): reports: no symptoms reported ABD/GI: reports: no symptoms reported : reports: no symptoms reported Musculoskeletal: reports: no symptoms reported Skin: reports: see HPI <Destiny Polo - Last Filed: 08/29/17 09:47> Cardiology Progress Note - Objective Weight 192 lb 2 oz 08/28/17 08/29/17 08/30/17 06:59 06:59 06:59 Intake Total 850 940 Output Total 1950 2350 Balance -1100 -1410 - Labs Result Diagrams: 08/24/17 03:45 08/24/17 03:45 - Assessment/Plan Pt. seen and eval. by me. I agree with the A/P by the EDUCATION SPECIALIST.
--- NOTE | 2017-08-27 17:21 | DIS ---
DATE OF ADMISSION: 08/23/2017 DATE OF DISCHARGE: 08/27/2017 PRINCIPAL DIAGNOSIS: Left main coronary artery disease. SECONDARY DIAGNOSIS: Urinary tract infection. SECONDARY DIAGNOSES: Present, but not specifically addressed, seizure disorder. PROCEDURE PERFORMED: Coronary artery bypass grafting x3 with left internal mammary artery to the LAD and reverse saphenous vein graft from aorta to the diagonal into the ramus intermedius with ligation of left atrial appendage on . HISTORY OF PRESENT ILLNESS: The patient is a 67-year-old man with chronic atrial fibrillation who had been having increasing fatigue, but no classic angina. Stress testing showed apical scar and ischemia and cardiac catheterization demonstrated high-grade distal left main lesion. He underwent surgical revascularization. At the time of placement of his Perez, his urine was noted to be turbid. A urinalysis was strongly suggestive of urinary tract infection and a culture grew E. coli with multiple sensitivities. He was started on empiric antibiotics to which the organism that grew proved to be sensitive. The patient was extubated day of surgery and transferred to the telemetry unit on postoperative day #1, his chest tubes were removed on postoperative day 2, he was still occasionally having some high rates with his atrial fibrillation on postoperative day 3, but that had largely resolved with his heart rates primarily being in the 90s on postoperative day 4, he is now being transferred to a [facility] facility to complete his convalescence as he lives at home alone and there is no one to care for him. EBONI
[2017-08-27] MEDS: Ciprofloxacin 500 MG TAB PO SCH (20:46)
[2017-08-27] MEDS: Atorvastatin Calcium 20 MG TAB PO SCH (20:46)
[2017-08-27] MEDS: Carvedilol 25 MG TAB PO SCH (20:46)
[2017-08-28] MEDS: Ciprofloxacin 500 MG TAB PO SCH ×2 (06:05→22:21)
[2017-08-28] MEDS: Tamsulosin HCl 0.4 MG CAP PO SCH (08:41)
[2017-08-28] MEDS: Aspirin 325 mg Enteric Coated Tablet PO SCH (08:41)
[2017-08-28] MEDS: carBAMazepine 200 MG TAB PO SCH ×2 (08:41→17:42)
[2017-08-28] MEDS: Famotidine 20 MG TAB PO SCH ×2 (08:41→22:22)
[2017-08-28] MEDS: Finasteride 5 MG TAB PO SCH (08:41)
[2017-08-28] MEDS: Amiodarone 200 MG TAB PO SCH ×2 (08:42→22:21)
[2017-08-28] MEDS: Digoxin 0.25 MG TAB PO SCH (08:42)
[2017-08-28] MEDS: Carvedilol 25 MG TAB PO SCH ×2 (09:25→22:22)
--- NOTE | 2017-08-28 14:55 | PDOC.CTH ---
<Estephanie Dinh - Last Filed: 08/28/17 20:30> Cardiology Progress Note - Subjective the pt seen and examined. No overnight events. No cardiac complaints. He is up to chair. He was instructed to use IS every 1 hr. - Objective Vital Signs Temp Pulse Pulse Pulse Resp BP BP 08/28/17 12:19 127 H 112 H 131/79 107/68 08/28/17 08:00 98.4 F 102 H 20 08/28/17 03:30 98.5 F 92 20 BP BP Pulse Ox Pulse Ox Pulse Ox 08/28/17 12:19 97 92 L 08/28/17 08:00 103/65 94 L 08/28/17 03:30 111/85 95 Weight 192 lb 2 oz 08/27/17 08/28/17 08/29/17 06:59 06:59 06:59 Intake Total 2030 850 Output Total 6250 1950 Balance -4220 -1100 - Physical Examination General/Neuro: alert & oriented x3 Neck: no JVD present Lungs: CTA, other: Heart: other: (irregular) Abdomen: soft Extremities: other: (No edema) - Telemetry Telemetry Rhythm: Afib with HR 100-130s - Labs Result Diagrams: 08/24/17 03:45 08/24/17 03:45 - Assessment/Plan 1. CAD s/p CABG x3 to WALKER-LAD, Saph-diag, Saph-Ramus on 08/23/17 - stable; MSI HUEY and clear; 2. Chronic afib - remains in Afib with HR 110-130s with on Amiodarone 200mg BID , Dig 0.25mg PO daily, Coreg 25gm BID, and ASA 325mg daily; Digoxin 0.125mg IV push x 1 was ordered today 3. S/P EVELINE ligation 4. HTN - stable with current medication 5. Hyperlipidemia - on statin 6. E-coli UTI - on Cipro PO; managed by PCP 7. Seizure MAR reviewed * Discharge med: ASA (CHAD2 score 1 according to the pt's record), Coreg, Amiodarone, Dig 0.25mg * From Cardiac standpoint, the pt is stable to d/c; The pt will f/u with Dr Barclay within 2-4wks * Cont. Amiodarone 200 mg BID. Once his BP starts to come up in the next few weeks will plan on restarting home dose of diltiazem and transitioning out of amiodarone by Dr Barclay. * @ 2029, The pt's HR is still 100-110s after Dig 0.125mg IV push; Start Diltiazem 60mg BID from tonight Review of Systems - Review of Systems Constitutional: reports: no symptoms reported EENTM: reports: no symptoms reported Respiratory: reports: no symptoms reported Cardiac (ROS): reports: no symptoms reported ABD/GI: reports: no symptoms reported : reports: no symptoms reported <Destiny Polo - Last Filed: 08/29/17 09:48> Cardiology Progress Note - Objective Weight 192 lb 2 oz 08/28/17 08/29/17 08/30/17 06:59 06:59 06:59 Intake Total 850 940 Output Total 1950 2350 Balance -1100 -1410 - Labs Result Diagrams: 08/24/17 03:45 08/24/17 03:45 - Assessment/Plan Pt. seen and eval. by me. I have discussed the pt. and plan with the PET COUNSELOR and agre to the A/P.
[2017-08-28] MEDS ORDERED: Digoxin 0.5 MG/2 ML AMP SLOW IVP SCH (15:15)
[2017-08-28] MEDS: Diltiazem HCl SR 60 mg Capsule PO SCH (22:22)
[2017-08-28] MEDS: Atorvastatin Calcium 20 MG TAB PO SCH (22:22)
[2017-08-29] MEDS: Ciprofloxacin 500 MG TAB PO SCH (06:34)
[2017-08-29] MEDS: carBAMazepine 200 MG TAB PO SCH (08:40)
[2017-08-29] MEDS: Famotidine 20 MG TAB PO SCH (10:19)
[2017-08-29] MEDS: Amiodarone 200 MG TAB PO SCH (10:20)
[2017-08-29] MEDS: Diltiazem HCl SR 60 mg Capsule PO SCH (10:20)
[2017-08-29] MEDS: Digoxin 0.25 MG TAB PO SCH (10:20)
[2017-08-29] MEDS: Carvedilol 25 MG TAB PO SCH (10:20)
[2017-08-29] MEDS: Finasteride 5 MG TAB PO SCH (10:20)
[2017-08-29] MEDS: Aspirin 325 mg Enteric Coated Tablet PO SCH (10:20)
[2017-08-29] MEDS: Tamsulosin HCl 0.4 MG CAP PO SCH (10:20)
[2017-08-29 11:43] VITALS: TEMP 97.5
[2017-08-29 12:42] VITALS: BP 106/69
--- NOTE | 2017-08-29 13:51 | DIS ---
DATE OF ADMISSION: 08/23/2017 HOSPITAL COURSE: The patient was admitted on 08/23/2017 where he underwent coronary bypass grafting x3 to the LAD, diagonal, and ramus. He also underwent left atrial appendage ligation. Postoperative ly, he had a brief period of sinus rhythm and was back in his chronic atrial fibrillation. He was st able throughout his hospital course ambulating the halls. He remained in atrial fibrillation with ra manuela in the 90-100 range. His antihypertensives were not restarted at this time due to the fact that his blood pressure was only about 110-120 at the time of discharge. He will be followed up in my off ice in 2 weeks as well as with Dr. Barclay.
--- NOTE | 2017-08-29 17:14 | PDOC.CTH ---
Cardiology Progress Note - Subjective He is doing great today. He has been walking very well without issues. - Objective Vital Signs Temp Pulse Pulse Pulse Resp BP BP 08/29/17 12:03 112 H 113 H 128/72 130/71 08/29/17 12:00 97.5 F L 104 H 18 08/29/17 08:00 97.5 F L 101 H 16 BP Pulse Ox Pulse Ox Pulse Ox 08/29/17 12:03 98 95 08/29/17 12:00 106/69 97 08/29/17 08:00 121/69 97 Weight 192 lb 2 oz 08/28/17 08/29/17 08/30/17 06:59 06:59 06:59 Intake Total 850 940 Output Total 1950 2350 Balance -1100 -1410 - Physical Examination General/Neuro: alert & oriented x3, NAD Neck: no JVD present Lungs: CTA, unlabored respirations Heart: other: (Irreg) Abdomen: NT/ND Extremities: + edema B (1+) - Telemetry Telemetry Rhythm: Afib HR 70-90 - Labs Result Diagrams: 08/24/17 03:45 08/24/17 03:45 - Assessment/Plan 1. CAD s/p CABG. 2. Chronic afib 3. S/P EVELINE ligation 4. E-coli UTI PLAN: - Ecoli sensitive to cipro, continue for 1 more days. - Aspirin and statin for life. - Continue digoxin, coreg, amiodarone, diltiazem. - May discharge to rehab. Will follow up with me in 1 month, - At that time will plan on discontinuation of amiodarone and resume home dose of diltiazem.
[2017-08-30 08:57] LABS: Actual Bicarbonate (HCO3a) 24.5 mEq/L (22-26); Base Excess (BEa) 0.6 mEq/L (0 (+/-) 2.5); CO2 Tension 36.9 mmHg (35.0-45.0); Hematocrit-ABG 41.1 % (42.0-52.0); O2 Tension (PaO2) 355.8 mmHg (80.0-100.0); pH, Arterial 7.44 (7.35-7.45)
[2017-08-30 08:58] LABS: Analyzer IN Cardio OR; Puncture Site ALINE
[2017-08-30 09:07] LABS: Actual Bicarbonate (HCO3a) 23.9 mEq/L (22-26); Base Excess (BEa) -1.7 mEq/L (0 (+/-) 2.5); CO2 Tension 43.9 mmHg (35.0-45.0); O2 Tension (PaO2) 414.8 mmHg (80.0-100.0); pH, Arterial 7.35 (7.35-7.45)
[2017-08-30 09:08] LABS: Hematocrit-ABG 39.2 % (42.0-52.0); Hemoglobin (Hb) 13.9 g/dL (14.0-18.0)
[2017-08-30 09:09] LABS: Actual Bicarbonate (HCO3a) 24.2 mEq/L (22-26); Base Excess (BEa) -0.7 mEq/L (0 (+/-) 2.5); CO2 Tension 40.8 mmHg (35.0-45.0); Hemoglobin (Hb) 11.3 g/dL (14.0-18.0); pH, Arterial 7.39 (7.35-7.45)
[2017-08-30 09:09] LABS: Analyzer IN Cardio OR; Puncture Site ALINE
[2017-08-30 09:10] LABS: Analyzer IN Cardio OR; Calcium, Ionized 0.9 mmol/L (1.12-1.30); Puncture Site ALINE
[2017-08-30 09:11] LABS: Analyzer IN Cardio OR; pH (venous) 7.34 (7.35-7.45)
[2017-08-30 09:12] LABS: Actual Bicarbonate (HCO3v) 27 mEq/L (22-26); Base Excess 0.2 mEq/L (0 (+/- 2.5)); Calcium, Ionized 0.92 mmol/L (1.16-1.32); Chloride (ABG LAB) 103 mmol/L (98-106); Hematocrit-VBG 32.3 % (37-51); Hemoglobin (Hb) 11.5 g/dL (12.6-17.4); Potassium - ABG Lab 5.1 mmol/L (3.70-5.30); Sodium 138.1 mmol/L (133-146)
[2017-08-30 09:13] LABS: CO2 Tension 43.7 mmHg (35.0-45.0); O2 Tension (PaO2) 430.7 mmHg (80.0-100.0); pH, Arterial 7.36 (7.35-7.45)
[2017-08-30 09:14] LABS: Actual Bicarbonate (HCO3a) 24.4 mEq/L (22-26); Analyzer IN Cardio OR; Base Excess (BEa) -1.1 mEq/L (0 (+/-) 2.5); Calcium, Ionized 0.9 mmol/L (1.12-1.30); Hematocrit-ABG 32.5 % (42.0-52.0); Hemoglobin (Hb) 11.5 g/dL (14.0-18.0); Puncture Site ALINE
[2017-08-30 09:16] LABS: Actual Bicarbonate (HCO3a) 23.1 mEq/L (22-26); Base Excess (BEa) -2.3 mEq/L (0 (+/-) 2.5); CO2 Tension 41.9 mmHg (35.0-45.0); Hematocrit-ABG 33.5 % (42.0-52.0); O2 Tension (PaO2) 270.7 mmHg (80.0-100.0); pH, Arterial 7.36 (7.35-7.45)
[2017-08-30 09:17] LABS: Analyzer IN Cardio OR; Hemoglobin (Hb) 12.1 g/dL (14.0-18.0); Puncture Site ALINE
== END 2017-08-29 13:33 | DRG 235 ==
LOC: SURG A 08-23 06:00 → CCU 08-23 09:14 → 2NO 08-24 10:21
PROVIDERS: ADMIT Thoracic Surgery (Cardiothoracic Vascular Surgery); ATTEND Thoracic Surgery (Cardiothoracic Vascular Surgery)
PROC: 02100Z9 Bypass Coronary Artery, One Artery from Left Internal Mammary, Open Approach (ICD-10-PCS; principal; 2017-08-23)
PROC: 021109W Bypass Coronary Artery, Two Arteries from Aorta with Autologous Venous Tissue, Open Approach (ICD-10-PCS; 2017-08-23)
PROC: 06BQ3ZZ Excision of Left Saphenous Vein, Percutaneous Approach (ICD-10-PCS; 2017-08-23)
PROC: 5A1221Z Performance of Cardiac Output, Continuous (ICD-10-PCS; 2017-08-23)
PROC: B24BZZ4 Ultrasonography of Heart with Aorta, Transesophageal (ICD-10-PCS; 2017-08-23)
PROC: 02L70ZK Occlusion of Left Atrial Appendage, Open Approach (ICD-10-PCS; 2017-08-23)
DX: I25.10 Atherosclerotic heart disease of native coronary artery without angina pectoris (principal); J96.00 Acute respiratory failure, unspecified whether with hypoxia or hypercapnia; I48.2 Chronic atrial fibrillation; N39.0 Urinary tract infection, site not specified; G40.909 Epilepsy, unspecified, not intractable, without status epilepticus; B96.20 Unspecified Escherichia coli [E. coli] as the cause of diseases classified elsewhere
CPT/HCPCS: 36416; 36430; 71045; 80048; 81001; 82805; 85025; 85610; 85730; 86850; 86900; 86901; 87077; 87086; 87186; 93005; 93010; 93798; 94002; 94150; A4216; G8978-GP-CJ; G8979-GP-CJ; G8980-GP-CJ; G8987-GO-CJ; G8988-GO-CH; J0282; J0696; J0744; J1160; J1642; J1644; J1815; J1885; J2001; J2250; J2405; J2440; J2704; J2720; J3010; J3370; J3475; J3480; J7050; J7070; P9045; S0017; S0028

== ENCOUNTER 2020-07-02 10:40 | Day surgery (SDC) | payer MEDICARE ==
[2020-07-01 10:20] VITALS: BMI 25.8
--- NOTE | 2020-07-01 12:54 | HP ---
HISTORY OF PRESENT ILLNESS: A 70-year-old male patient, has had a mass on his right leg present for many years. It has not changed in size in the last few years. Dr. Leyva, [facility], did a biopsy, referred to [facility] for pathology review by Dr. Hussein revealing neurofibroma with hypercellularity. The mass on the anterior mid right thigh measures 5 x 6 cm, it is mobile, irregular shape. It is stated in the pathology report, this could be consistent with neurofibromas, but the patient has no history of that. He does have a history of epilepsy, but has not had a seizure in many years. The patient is single, lives alone. Plan is to excise this mass with margins for a total pathology evaluation. It is a low-grade neurofibroma and we will evaluate in its entirety pathologically. He has enough redundant skin that should be able to be closed without problems. ALLERGIES: NONE. SOCIAL HISTORY: Tobacco, none. Alcohol, none. PAST SURGICAL HISTORY: Coronary artery bypass graft in August 2009 in [facility] by Dr. Avila. The patient followed by Dr. Barclay, saw him several months ago and has been doing well. He is asymptomatic from a cardiac standpoint. The patient is up-to-date on his colonoscopies. PAST MEDICAL HISTORY: Stable coronary artery disease and epilepsy. MEDICATIONS: 1. Aspirin 81 mg a day. 2. Fluodrocortisone daily. 3. Digoxin 0.25 mg daily. 4. Carbamazepine 100 mg chewable two tablets twice a day. 5. Atorvastatin 10 mg a day. 6. Carvedilol 12.5 mg twice a day. 7. Cartia XT (diltiazem) 120 mg a day. FAMILY HISTORY: Father and mother . No past history significant. REVIEW OF SYSTEMS: Ten-point noncontributory. PHYSICAL EXAMINATION: VITAL SIGNS: Weight 180 pounds, 68, and 27 BMI. 112/68, 75, and 97 degrees. HEAD, EARS, EYES, NOSE, AND THROAT: Unremarkable. LUNGS: Clear to auscultation. CARDIAC: Regular rate and rhythm without murmur or gallop. ABDOMEN: Soft and nontender. No masses. EXTREMITIES: Right anterior thigh reveals a 5.5 x 6 cm mobile exophytic mass. There is redundant skin around it. No ankle edema. ASSESSMENT: 1. Neurofibroma with hypercellularity, right thigh. Plan excision as an outpatient. General anesthesia. Follow up in my office in two weeks for pathology review. He understands risks and benefits, consents. 2. Coronary artery disease, stable. 3. Epilepsy. No seizure in many years. 4. Up-to-date on his colonoscopies. Job ID: [id number]
[~2020-07-02 10:40] MED LIST: Dexamethasone 20 MG/5 ML VIAL ONE; Ondansetron PF 4 MG/2 ML Vial ONE; PROPOFOL 200 MG/20 ML VIAL ONE; diphenhydrAMINE 50 MG/ML VIAL ONE
[2020-07-02] MEDS ORDERED: Midazolam HCl 2 mg/2 ml Vial ONE (13:05)
[2020-07-02] MEDS ORDERED: Fentanyl 100 MCG/2 ML VIAL ONE (13:05)
[2020-07-02] MEDS ORDERED: Bacitracin Zinc Ointment 30 gm TUBE ONE (13:07)
[2020-07-02] MEDS ORDERED: Bupivacaine PF 0.5% 30 ML VIAL ONE (13:07)
[2020-07-02] MEDS ORDERED: Lidocaine 1% w/Epinephrine 1:100K 20 ML VIAL ONE (13:07)
--- NOTE | 2020-07-02 19:31 | OP ---
DATE OF PROCEDURE: 07/02/2020 PREOPERATIVE DIAGNOSIS: Tumor mass of right anterior thigh, neurofibroma by biopsy. POSTOPERATIVE DIAGNOSIS: Tumor mass of right anterior thigh, neurofibroma by biopsy. PROCEDURES PERFORMED: Excision of tumor mass, right anterior thigh, intermediate layer closure, mobilization of flaps, 12 cm incision completed. ANESTHESIA: General, local 0.25% Marcaine 30 mL mixed with 1% Xylocaine with epinephrine 20 mL. DESCRIPTION OF PROCEDURE: The patient was taken to the operating room, where under general anesthesia, anterior thigh clipped of hair, prepared with ChloraPrep, and draped in routine fashion. An elliptical incision was made to encompass resection of the tumor mass, carried down through skin and subcutaneous tissue to the fascia. Tumor mass excised, submitted to Pathology, marking the superior corner, lateral border with sutures for pathology analysis. Hemostasis gained with cautery. Flaps elevated laterally and medially, and subcutaneous tissue was approximated with interrupted sutures of 3-0 and 2-0 Monocryl. This approximated the wound. Skin approximated with 3-0 Prolene suture. Sterile dressing applied. The patient tolerated the procedure well. Job ID: [id number]
--- NOTE | 2020-07-11 08:40 | PQF ---
[facility] POST DISCHARGE CLINICAL DOCUMENTATION IMPROVEMENT CLARIFICATION FORM Todays Date: 07/11/20 Patients Name THOMAS PITT Admit Date 07/02/20 Disch Date 07/02/20 Wet Process Assistant Head Miller Name Lobo Pope Email: [email or web address] Cell: [phone] To be completed by Wet Process Assistant Head Miller: Present Clinical Indicators - Signs / Symptoms Results and Location in Medical Record [ ] Documentation of: [ ] [ ] Documentation of: [ ] [ ] Documentation of: [ ] [ ] Documentation of: [ ] [ ] Risks [ ] [ ] [ ] Treatment [ ] Neurofibroma right anterior thigh Query for size w/ margins (cm) of excised right thigh mass [ ] [ ] To be completed by Physician: SANDRINE MARKS The documentation in this patients record requires clarification to ensure coding compliance and accuracy. Check the appropriate box and include in your discharge summary. [ ] [ ] [ ] [ ] Please check this box if this does not apply to this patient [ ] Unable to determine [ ] Other diagnosis: Review the following information and exercise your independent professional judgment in responding to the clarification. Based upon the clinical findings, risk factors, and treatment, please clarify if you are treating one of the above probable or suspected diagnoses. Physician Signature: Date Time MTDD
--- NOTE | 2020-07-13 12:34 | OP ---
DATE OF PROCEDURE: 07/02/2020 ADDENDUM: Mr. Dudley Abbasi had excision of a right thigh tumor. Tumor excised was 9 x 5.5 x 4 cm representing the tumor mass measurements. The incision was 12 x 6 cm, closed in layer fashion. Resulting incision closed length 12 cm, responsible for excision of tumor mass with normal tissue margins considering possibility for malignancy. Job ID: [id number]
== END 2020-07-02 15:54 | disposition home or self-care (01) ==
LOC: SDC 10:40
PROVIDERS: ATTEND Specialist
PROC: 0JBL0ZZ Excision of Right Upper Leg Subcutaneous Tissue and Fascia, Open Approach (ICD-10-PCS; principal; 2020-07-02)
DX: C47.2 Malignant neoplasm of peripheral nerves of lower limb, including hip (principal); I25.10 Atherosclerotic heart disease of native coronary artery without angina pectoris; G40.909 Epilepsy, unspecified, not intractable, without status epilepticus; I10 Essential (primary) hypertension; Z79.82 Long term (current) use of aspirin; Z79.899 Other long term (current) drug therapy; Z95.1 Presence of aortocoronary bypass graft; Z95.2 Presence of prosthetic heart valve
CPT/HCPCS: 88305; J0690; J1100; J1200; J2250; J2405; J2704; J3010; S0020

== ENCOUNTER 2020-07-22 08:41 | Outpatient (CLI) | payer MEDICARE ==
--- NOTE | 2020-07-22 10:14 | CT ---
EXAM: CT Lower Ext Rt W Con PROVIDED CLINICAL HISTORY: Right thigh sarcoma COMPARISON: None FINDINGS: Evaluation for soft tissue abnormalities is suboptimal by CT. Evaluation for residual or recurrent disease is limited in the absence of comparison examinations. There is reticulation of the subcutaneous adipose layer at the anterior aspect of the distal thigh wi th mild overlying cutaneous thickening. There is a somewhat focal area of nodular enhancement involving the subcutaneous adipose layer in this region measuring about 4 mm. The regional soft tissues demonstrate an otherwise unremarkable CT appearance. The osseous structures demonstrate no concerning lytic or blastic lesions. The right hip joint space appears preserved. No hip joint effusion is seen. There is no evidence for inguinal lymph node enlargement. IMPRESSION: Nonspecific soft tissue changes involving the subcutaneous adipose layer of the anterior aspect of th e distal thigh, with 4 mm somewhat nodular focus of enhancement demonstrated that could reflect postoperative change. Residual or recurrent disease cannot be excluded. Correlation with prior luciana g is necessary.
--- NOTE | 2020-07-22 10:22 | CT ---
EXAM: CT Chest Abd Pelvis W Con PROVIDED CLINICAL HISTORY: Right thigh sarcoma COMPARISON: None FINDINGS: Median sternotomy changes redemonstrated. The right atrium appears enlarged. The heart, pericardium a nd great vessels appear otherwise unremarkable. There is no evidence for thoracic lymph node enlargement. The airway appears patent and of normal caliber. Evaluation of the lung parenchyma is limited due to respiratory motion. There is a calcified granulom a the right lung base. No concerning parenchymal abnormality is evident. The liver, spleen, pancreas, kidneys and adrenal glands demonstrate an unremarkable CT appearance. There is no bowel dilatation, inflammatory fat stranding, free fluid or lymph node enlargement appare nt. Atherosclerotic vascular calcification is noted involving the abdominal aorta and its branches with i rregular mural plaque demonstrated involving the distal abdominal aorta and common iliac arteries. There is a focal high-grade noncalcified stenosis involving the proximal superior mesenteric artery j ust distal to the origin. The osseous structures demonstrate no concerning lytic or blastic lesions. IMPRESSION: 1. No evidence for metastatic disease involving the chest, abdomen and pelvis. 2. 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
--- NOTE | 2020-07-22 13:43 | NM ---
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 FINDINGS: There is bilaterally increased uptake of radiopharmaceutical in the major joints and the spine, consi stent with degenerative changes. Otherwise, there are no foci of asymmetrically increased uptake that are particularly suspicious for bone metastases. There is increased uptake in the calvarium. At least some of this probably represents hyperostosis frontalis interna. IMPRESSION: 1. Osteoarthrosis and spondylosis. 2. No compelling evidence of skeletal metastasis.
== END 2020-07-22 08:42 | disposition home or self-care (01) ==
LOC: CT 08:41
PROVIDERS: ATTEND Internal Medicine Hematology & Oncology
DX: C47.2 Malignant neoplasm of peripheral nerves of lower limb, including hip (principal); M79.89 Other specified soft tissue disorders; M19.91 Primary osteoarthritis, unspecified site; I70.8 Atherosclerosis of other arteries; Z98.890 Other specified postprocedural states
CPT/HCPCS: 71260; 73701; 74177; 78306; 82565; A9503

== ENCOUNTER 2021-12-09 10:42 | Outpatient (CLI) | payer MEDICARE ==
[~2021-12-09 10:42] MED LIST changes: -Dexamethasone 20 MG/5 ML VIAL ONE; +Iopamidol 370 76% 100 ML VIAL ONE; -Ondansetron PF 4 MG/2 ML Vial ONE; -PROPOFOL 200 MG/20 ML VIAL ONE; -diphenhydrAMINE 50 MG/ML VIAL ONE
== END 2021-12-09 10:43 | disposition home or self-care (01) ==
LOC: CT 10:42
PROVIDERS: ATTEND Radiology Radiation Oncology
DX: N13.30 Unspecified hydronephrosis (principal); C76.51 Malignant neoplasm of right lower limb; R91.1 Solitary pulmonary nodule; E04.2 Nontoxic multinodular goiter; N13.4 Hydroureter; N32.89 Other specified disorders of bladder
CPT/HCPCS: 71250; 71260; 74176; 82565; Q9967

== ENCOUNTER 2022-05-07 07:24 | Outpatient (CLI) | payer MEDICARE ==
[2022-05-07] MEDS ORDERED: Iopamidol 370 76% 100 ML VIAL ONE (09:19)
== END 2022-05-07 07:25 | disposition home or self-care (01) ==
LOC: ULT 07:24
PROVIDERS: ATTEND Radiology Radiation Oncology
DX: C49.21 Malignant neoplasm of connective and soft tissue of right lower limb, including hip (principal); E04.2 Nontoxic multinodular goiter; R91.1 Solitary pulmonary nodule
CPT/HCPCS: 71260; 76536; 82565; Q9967

== ENCOUNTER 2022-05-17 14:57 | Outpatient (CLI) | payer MEDICARE ==
[~2022-05-17 14:57] MED LIST changes: +Gadobenate Dimeglumine 529 MG/1 ML (20ML VIAL) ONE; -Iopamidol 370 76% 100 ML VIAL ONE
== END 2022-05-17 14:58 | disposition home or self-care (01) ==
LOC: SCSMRI 14:57
PROVIDERS: ATTEND Radiology Radiation Oncology
DX: C76.51 Malignant neoplasm of right lower limb (principal)
CPT/HCPCS: A9577

== ENCOUNTER 2022-11-02 08:48 | Outpatient (CLI) | payer MEDICARE ==
[2022-11-02] MEDS ORDERED: Iopamidol-370 76% 500 ML MDV (1 ML CHARGE) ONE (09:39)
== END 2022-11-02 08:49 | disposition home or self-care (01) ==
LOC: CT 08:48
PROVIDERS: ATTEND Radiology Radiation Oncology
DX: C76.51 Malignant neoplasm of right lower limb (principal); I51.7 Cardiomegaly; E04.2 Nontoxic multinodular goiter; R91.1 Solitary pulmonary nodule; Z98.890 Other specified postprocedural states; Z92.3 Personal history of irradiation
CPT/HCPCS: 71260; 82565